=== PATIENT | female | born 1960 ===

== ENCOUNTER 2018-02-10 18:06 | Emergency (ER) | payer SELFPAY ==
[2018-02-10 18:16] VITALS: BMI 30.9
[2018-02-10 18:18] VITALS: BP 138/84; PULSE 81; TEMP 98.5; O2SAT 100
[2018-02-10] MEDS ORDERED: Tdap Vaccine 0.5 ml Vial (10-64 yrs) IM ONE ×2 (18:49→18:54)
--- NOTE | 2018-02-10 20:10 | C.PDOC ---
History Of Present Illness 58yo female, comes to ER for evaluation after she fell and injured her left knee. Patient states she was walking down some stairs and missed the last step, and subsequently fell. She denies any head injury, neck pain, weakness or numbness in her left lower extremity. Additionally, patient states after her fall she went to get some ice for the knee and while "chopping at an ice block" she accidentally cut herself on her left thumb. She states her tetanus is not up to date. Time Seen by Provider: 02/10/18 18:31 Chief Complaint (Nursing): Lower Extremity Problem/Injury History Per: Patient History/Exam Limitations: no limitations Onset/Duration Of Symptoms: Hrs Current Symptoms Are (Timing): Still Present Additional History Per: Patient - Knee Description Of Injury: Fell Past Medical History Reviewed: Historical Data, Nursing Documentation, Vital Signs Vital Signs: Last Vital Signs Temp 98.5 F 02/10/18 18:16 Pulse 81 02/10/18 18:16 Resp 20 02/10/18 20:31 BP 138/84 02/10/18 18:16 Pulse Ox 100 02/11/18 22:19 - Medical History PMH: CHF, HTN, Hypercholesterolemia Surgical History: No Surg Hx Family History: States: No Known Family Hx - Social History Hx Alcohol Use: No Hx Substance Use: No - Immunization History Hx Tetanus Toxoid Vaccination: No Hx Influenza Vaccination: No Hx Pneumococcal Vaccination: No Review Of Systems Musculoskeletal: Positive for: Other (left knee pain) Skin: Positive for: Other (laceration to left thumb) Neurological: Negative for: Weakness, Numbness Physical Exam - Physical Exam Appears: Non-toxic, No Acute Distress Skin: Normal Color, Warm, Dry, Other (1.5 cm laceration distal palmar surface of left thumb) Neck: No Midline Cervical Tenderness Extremity: Normal ROM, Tenderness (medial left knee and medial tibial area with mild swelling noted), No Calf Tenderness, No Deformity Pulses: Left Dorsalis Pedis: Normal, Right Dorsalis Pedis: Normal Neurological/Psych: Oriented x3, Normal Motor, Normal Sensation ED Course And Treatment O2 Sat by Pulse Oximetry: 100 (RA) Pulse Ox Interpretation: Normal Laceration - Laceration Repair Left thumb Wound Length (In cm): 1.5 Description Of Wound: Linear Wound Cleansed With: Sterile Saline Wound Closure: Skin Glue Wound Complexity: Simple Medical Decision Making Medical Decision Making: pt s/.p trip and fall on steps; landed on lknee. pain to medial left upper leg, no fx noted. laceration to left thumb from knife she used to break up ice to put on knee-glued shut and tdap given d/c home Disposition Counseled Patient/Family Regarding: Studies Performed, Diagnosis, Need For Followup, Rx Given - Disposition Referrals: Radha Armijo MD [Medical Doctor] - Disposition: HOME/ ROUTINE Disposition Time: 20:07 Condition: GOOD Additional Instructions: Por favor, aplique compresas fras en la pierna izquierda sobre stanley venda as varias veces al da. [place] Tylenol para el dolor. El pegamento en el dedo caer por s mismo, no lo picotee. Michelle un seguimiento con perez mdico en 2-3 duarte. Regrese a la gretchen de emergencias por cualquier sntoma peor. Please apply cold compress to left leg over jones bandage several times a day. Take Tylenol for pain. Glue on finger will fall off by itself, do not pic at it. Follow up with yur doctor in 2-3 days. Return to ER for any worse symptoms. Prescriptions: Acetaminophen [Tylenol 325mg tab] 650 mg PO Q4 #50 tab Instructions: Laceration Repair With Glue (DC), Contusion (DC) Forms: Gen Discharge Inst Paraguayan, Pix[employer] (Paraguayan) Print Language: PRYDEINIG - Clinical Impression Clinical Impression: Laceration of left thumb, Contusion of left lower leg, Fall on or from stairs or steps - PA / FILER HELPER / Resident Statement MD/ has reviewed & agrees with the documentation as recorded. - Scribe Statement The provider has reviewed the documentation as recorded by the Melinda Hogan Provider Attestation: All medical record entries made by the Melinda were at my direction and personally dictated by me. I have reviewed the chart and agree that the record accurately reflects my personal performance of the history, physical exam, medical decision making, and the department course for this patient. I have also personally directed, reviewed, and agree with the discharge instructions and disposition.
[2018-02-10 20:32] VITALS: RESP 20
--- NOTE | 2018-02-11 07:09 | RAD ---
Date of service: 02/10/2018 PROCEDURE: Left Knee Radiographs. HISTORY: Pain. COMPARISON: None. FINDINGS: BONES: No acute fracture or destructive bony lesion identified. JOINTS: Marked joint space narrowing with moderate articular cortical sclerosis and moderate osteophyte development is identified at the medial femorotibial compartment compatible with degenerative joint disease. Joint space narrowing seen the patellofemoral articulation. JOINT EFFUSION: None. OTHER FINDINGS: None. IMPRESSION: No acute fracture or dislocation left knee. Moderate bicompartmental osteoarthritis identified.
== END 2018-02-10 20:31 | disposition home or self-care (01) ==
LOC: C.ER 18:06
DX: S61.012A Laceration without foreign body of left thumb without damage to nail, initial encounter (principal); W26.0XXA Contact with knife, initial encounter; S80.12XA Contusion of left lower leg, initial encounter; W10.9XXA Fall (on) (from) unspecified stairs and steps, initial encounter; Y92.9 Unspecified place or not applicable; Z23 Encounter for immunization

== ENCOUNTER 2018-11-11 09:17 | Outpatient (CLI) | payer OTHER | END 2018-11-11 09:18 | disposition home or self-care (01) | LOC: C.USIC 09:18 ==

== ENCOUNTER 2018-11-11 10:07 | Outpatient (CLI) | payer OTHER | END 2018-11-11 10:08 | disposition home or self-care (01) | LOC: C.LAB 10:07 | DX: I10 Essential (primary) hypertension (principal); E78.5 Hyperlipidemia, unspecified; Z13.9 Encounter for screening, unspecified; E55.9 Vitamin D deficiency, unspecified ==

== ENCOUNTER 2018-11-25 12:47 | Outpatient (CLI) | payer OTHER | END 2018-11-25 12:48 | disposition home or self-care (01) | LOC: C.MAMMO 12:48 | DX: Z12.31 Encounter for screening mammogram for malignant neoplasm of breast (principal) ==